=== PATIENT | male | born 1955 | race Caucasian/White ===

== ENCOUNTER 2023-10-30 09:05 | Emergency (ER) | payer MEDICARE, OTHER ==
--- NOTE | 2023-10-30 09:11 | ERPHSYRPT ---
- History of Present Illness Time Seen by Provider: 10/30/23 09:10 Historian: patient Exam Limitations: no limitations Physician History: This is an obese 68-year-old white male patient who presents to the emergency department with intermittent chest pain that began yesterday afternoon. It is in the left upper chest wall. Patient has chronic shortness of breath issues. Patient was concerned because he had similar chest discomfort this morning. He describes this as localized, nonradiating ache. He currently does not have any chest pain. Patient has never been diagnosed with coronary artery disease. He has never seen a smoking pipe repairer. He has a history of hypertension and gout. Patient does smoke cigarettes daily. Ranges from 2 cigarettes a day to a pack o r more if he is drinking alcohol at the same time. Patient has not noticed any hematemesis, hemoptysis or bright red blood per rectum. He has not lost weight. He does not have a cough. Timing/Duration: yesterday Quality: aching Location: other (Left anterior upper chest) Chest Pain Radiation: no radiation Severity of Pain-Max: mild Severity of Pain-Current: none Modifying Factors: Improves With: nothing Associated Symptoms: denies symptoms Prior Chest Pain/Cardiac Workup: no prior chest pain, no prior cardiac workup Nitro Today/Relief: no nitro taken today Aspirin Treatment Today: 81 mg x 4, provided by ED Allergies/Adverse Reactions: No Known Drug Allergies Allergy (Verified 10/30/23 09:13) Home Medications: Allopurinol 100 mg [Zyloprim 100 mg] 100 mg PO DAILY 10/30/23 [History] Lisinopril 20 mg [Zestril 20 MG] 20 mg PO DAILY 10/30/23 [History] Travel Risk - International Travel Have you traveled outside of the country in past 3 weeks: No - Emerging Infectious Disease Are you exhibiting symptoms associated with any current EIDs: No - Review of Systems Constitutional: No Symptoms Eyes: No Symptoms Ears, Nose, & Throat: No Symptoms Respiratory: No Symptoms Cardiac: Chest Pain Abdominal/Gastrointestinal: No Symptoms Genitourinary Symptoms: No Symptoms Musculoskeletal: No Symptoms Skin: No Symptoms Neurological: No Symptoms Psychological: No Symptoms Endocrine: No Symptoms Hematologic/Lymphatic: No Symptoms Immunological/Allergic: No Symptoms All Other Systems: Reviewed and Negative - Past Medical History Pertinent Past Medical History: No - Nursing Vital Signs Nursing Vital Signs: Initial Vital Signs Temperature 97.6 F 10/30/23 09:05 Pulse Rate 80 10/30/23 09:05 Respiratory Rate 20 10/30/23 09:05 Blood Pressure 124/59 10/30/23 09:05 O2 Sat by Pulse Oximetry 98 10/30/23 09:05 Pain Scale Pain Intensity 0 - Physical Exam General Appearance: no apparent distress, alert, obese Eye Exam: PERRL/EOMI, eyes nml inspection Ears, Nose, Throat Exam: normal ENT inspection, moist mucous membranes Neck Exam: normal inspection, non-tender, supple, full range of motion Respiratory Exam: normal breath sounds, lungs clear, airway intact, No chest tenderness, No respiratory distress Cardiovascular Exam: regular rate/rhythm, normal heart sounds, normal peripheral pulses Gastrointestinal/Abdomen Exam: soft, normal bowel sounds, No tenderness Rectal Exam: not done Back Exam: normal inspection, normal range of motion, No CVA tenderness, No vertebral tenderness Extremity Exam: normal inspection, normal range of motion, pelvis stable Neurologic Exam: alert, oriented x 3, cooperative, crowning inspector II-XII nml as tested, normal mood/affect, nml cerebellar function, nml station & gait, sensation nml Skin Exam: normal color, warm, dry Lymphatic Exam: No adenopathy SpO2 Interpretation: normal O2 Delivery: Room Air - Course Nursing assessment & vital signs reviewed: Yes EKG Interpreted by Me: RATE (74), Sinus Rhythm, NORMAL AXIS, NORMAL INTERVALS, NORMAL QRS, NORMAL ST-T, Other (No acute ischemia on today's twelve-lead EKG. No comparison twelve-lead EKG available.) Ordered Tests: Active Orders 24 hr Category Date Time Status Color Control Operator STAT Care 10/30/23 09:25 Active EKG-ER Only STAT Care 10/30/23 09:24 Active IV Insertion STAT Care 10/30/23 09:24 Active Pulse Oximetry (ED) STAT Care 10/30/23 09:24 Active CHEST 1 VIEW (PORTABLE) Stat Exams 10/30/23 09:25 Completed CHEST WITH CONTRAST [CT] Stat Exams 10/30/23 10:17 Completed CBC W DIFF Stat Lab 10/30/23 09:30 Completed CMP Stat Lab 10/30/23 09:30 Completed D-DIMER QUANTITATIVE Stat Lab 10/30/23 09:30 Completed MAGNESIUM Stat Lab 10/30/23 09:30 Completed NT PRO BNPII Stat Lab 10/30/23 09:30 Completed PROTIME WITH INR Stat Lab 10/30/23 09:30 Completed TROPONIN Q4H Lab 10/30/23 09:30 Completed TROPONIN Q4H Lab 10/30/23 13:30 Ordered TROPONIN Q4H Lab 10/30/23 17:30 Ordered Medication Summary Discontinued Medications Generic Name Dose Route Start Last Admin Trade Name Kongq PRN Reason Stop Dose Admin Aspirin 324 mg 10/30/23 09:19 10/30/23 09:21 Aspirin 81 Mg Tab.Chew PO 10/30/23 09:20 324 mg STAT ONE Administration Aspirin Confirm 10/30/23 09:19 Aspirin 81 Mg Tab.Chew Administered 10/30/23 09:20 Dose 324 mg .ROUTE .STK-MED ONE Sodium Chloride 500 mls @ 500 mls/hr 10/30/23 10:18 10/30/23 10:41 Sodium Chloride 0.9% 500 Ml IV 10/30/23 11:17 500 mls/hr .Q1H ONE Administration Sodium Chloride Confirm 10/30/23 10:40 Sodium Chloride 0.9% 500 Ml Administered 10/30/23 10:41 Dose 500 mls @ ud IV .STK-MED ONE Lab/Rad Data: Laboratory Result Diagrams 10/30/23 09:30 10/30/23 09:30 Laboratory Results 10/30/23 10/30/23 10/30/23 Range/Units 09:30 09:30 09:30 WBC (4.0-10.5) x10^3/uL RBC (4.1-5.6) x10^6/uL Hgb (12.5-18.0) g/dL Hct (42-50) % MCV (78-100) fL MCH (26-32) pg MCHC (32-36) g/dL RDW (11.5-14.0) % Plt Count (150-450) x10^3/uL MPV (7.5-11.0) fL Gran % (36.0-66.0) % Immature Gran % (Auto) (0.00-0.4) % Nucleat RBC Rel Count (0.00-0.1) % Eos # (Auto) (0-0.5) x10^3/uL Immature Gran # (Auto) (0.00-0.03) x10^3u/L Absolute Lymphs (auto) (1.0-4.6) x10^3/uL Absolute Monos (auto) (0.0-1.3) x10^3/uL Absolute Nucleated RBC (0.00-0.01) x10^3u/L Lymphocytes % (24.0-44.0) % Monocytes % (0.0-12.0) % Eosinophils % (0.00-5.0) % Basophils % (0.0-0.4) % Absolute Granulocytes (1.4-6.9) x10^3/uL Basophils # (0-0.4) x10^3/uL PT 9.8 (9.4-12.5) SECONDS INR 0.89 (0.8-3.0) D-Dimer 0.77 H* (0.0-0.50) mg/L Sodium 139 (135-145) mmol/L Potassium 4.2 (3.5-5.1) mmol/L Chloride 107 (98-107) mmol/L Carbon Dioxide 28 (22-30) mmol/L Anion Gap 8.6 (5-15) MEQ/L BUN 19 (9-20) mg/dL Creatinine 0.89 (0.66-1.25) mg/dL Estimated GFR 94.5 ML/MIN Glucose 145 H (74-106) mg/dL Calcium 9.2 (8.4-10.2) mg/dL Magnesium 1.9 (1.6-2.3) mg/dL Total Bilirubin 0.30 (0.2-1.3) mg/dL AST 26 (17-59) U/L ALT 26 (0-50) U/L Alkaline Phosphatase 55 (38-126) U/L Troponin I < 0.012 (0.000-0.033) ng/mL NT-Pro-B Natriuret Pep 79.1 (<300) pg/mL Serum Total Protein 6.8 (6.3-8.2) g/dL Albumin 4.0 (3.5-5.0) g/dL 10/30/23 Range/Units 09:30 WBC 5.8 (4.0-10.5) x10^3/uL RBC 4.25 (4.1-5.6) x10^6/uL Hgb 12.9 (12.5-18.0) g/dL Hct 39.3 L (42-50) % MCV 92.5 (78-100) fL MCH 30.4 (26-32) pg MCHC 32.8 (32-36) g/dL RDW 13.2 (11.5-14.0) % Plt Count 158 (150-450) x10^3/uL MPV 10.6 (7.5-11.0) fL Gran % 70.6 H (36.0-66.0) % Immature Gran % (Auto) 0.3 (0.00-0.4) % Nucleat RBC Rel Count 0.0 (0.00-0.1) % Eos # (Auto) 0.12 (0-0.5) x10^3/uL Immature Gran # (Auto) 0.02 (0.00-0.03) x10^3u/L Absolute Lymphs (auto) 1.31 (1.0-4.6) x10^3/uL Absolute Monos (auto) 0.23 (0.0-1.3) x10^3/uL Absolute Nucleated RBC 0.00 (0.00-0.01) x10^3u/L Lymphocytes % 22.8 L (24.0-44.0) % Monocytes % 4.0 (0.0-12.0) % Eosinophils % 2.1 (0.00-5.0) % Basophils % 0.2 (0.0-0.4) % Absolute Granulocytes 4.06 (1.4-6.9) x10^3/uL Basophils # 0.01 (0-0.4) x10^3/uL PT (9.4-12.5) SECONDS INR (0.8-3.0) D-Dimer (0.0-0.50) mg/L Sodium (135-145) mmol/L Potassium (3.5-5.1) mmol/L Chloride (98-107) mmol/L Carbon Dioxide (22-30) mmol/L Anion Gap (5-15) MEQ/L BUN (9-20) mg/dL Creatinine (0.66-1.25) mg/dL Estimated GFR ML/MIN Glucose (74-106) mg/dL Calcium (8.4-10.2) mg/dL Magnesium (1.6-2.3) mg/dL Total Bilirubin (0.2-1.3) mg/dL AST (17-59) U/L ALT (0-50) U/L Alkaline Phosphatase (38-126) U/L Troponin I (0.000-0.033) ng/mL NT-Pro-B Natriuret Pep (<300) pg/mL Serum Total Protein (6.3-8.2) g/dL Albumin (3.5-5.0) g/dL - Progress Progress: improved, re-examined Air Movement: good Progress Note: 10/30/23 09:40 My medical decision making and the assignment of moderate complexity to this patient's medical issue today is based on review of the patient's past medical history, review of the patient's medication list, review of the patient's drug allergy list, history present illness and physical findings on examination. The workup in this patient includes placement of intravenous line, chest x-ray, twelve-lead EKG, BNP, D-dimer, troponin level, CBC, CMP, magnesium level 10/30/23 09:43 Differential diagnosis includes chest wall pain, myocardial infarction, CHF, pulmonary embolus, pneumonia, electrolyte abnormalities 10/30/23 10:16 Chest x-ray was interpreted by the radiologist and I reviewed the impression. The impression states minimal left lung base scarring/atelectasis. Other findings are chronic findings. D-dimer is elevated. We will order a CT scan of the chest with contrast 10/30/23 11:44 I interpreted the remainder of the laboratory data results. There is no evidence of any acute, emergent medical issues based on the laboratory data results. CT scan of the chest with contrast was interpreted by the radiologist and I reviewed the impression. Impression states no pulmonary embolus. There are no acute cardiopulmonary abnormalities. Counseled pt/family regarding: lab results, diagnosis, need for follow-up, rad results Medical Desision Making - Independent Historian Additional History obtained from: Family - Diagnostic Testing Diagnostic test were ordered, analyzed, and reviewed by me: Yes Radiological Interpretation: Reviewed by me, Teleradiologist Report - Risk of complications Low Risk: Low risk of morbidity from additional dx testing or treatment - Departure Departure Disposition: Home Clinical Impression: Nonspecific chest pain Condition: Stable Critical Care Time: No Referrals: KELLY GELLER [Primary Care Provider] - Follow up/PCP as directed Additional Instructions: Take your medications as prescribed. Call your primary care provider today to make arrangements for follow-up appointment to be seen in the next 3 to 5 days for further evaluation management including cardiac stress test and/or referral to smoking pipe repairer if indicated.
[2023-10-30 09:13] VITALS: TEMP 97.6
[2023-10-30] MEDS ORDERED: BABY ASPIRIN 81 MG CHEW ONE (09:19)
[2023-10-30] MEDS: BABY ASPIRIN 81 MG CHEW PO ONE (09:21)
[2023-10-30 09:43] LABS: Absolute Neutrophil Ct (ANC) 4.06 x10^3/uL (1.4-6.9); BASOPHIL % 0.2 % (0.0-0.4); Basophil (Absolute #) 0.01 x10^3/uL (0-0.4); Eosinophil % 2.1 % (0.00-5.0); Eosinophil (Absolute #) 0.12 x10^3/uL (0-0.5); Hematocrit 39.3 % (42-50); Hemoglobin 12.9 g/dL (12.5-18.0); IMMATURE GRAN # 0.02 x10^3u/L (0.00-0.03); IMMATURE GRAN % 0.3 % (0.00-0.4); Lymphocyte (Absolute #) 1.31 x10^3/uL (1.0-4.6); Lymphocytes % 22.8 % (24.0-44.0); Mean Cell Volume 92.5 fL (78-100); Mean Corpuscular Hemoglobin 30.4 pg (26-32); Mean Corpuscular Hgb Concent. 32.8 g/dL (32-36); Mean Platelet Volume 10.6 fL (7.5-11.0); Monocyte (Absolute #) 0.23 x10^3/uL (0.0-1.3); Neutrophil % 70.6 % (36.0-66.0); Platelet Count 158 x10^3/uL (150-450); Red Blood Count 4.25 x10^6/uL (4.1-5.6); Red Cell Distribution Width 13.2 % (11.5-14.0); White Blood Count 5.8 x10^3/uL (4.0-10.5)
[2023-10-30 10:08] LABS: ANION GAP 8.6 MEQ/L (5-15); BILIRUBIN,TOTAL 0.3 mg/dL (0.2-1.3); Calcium 9.2 mg/dL (8.4-10.2); Creatinine 1 0.89 mg/dL (0.66-1.25); EST GLOMERULAR FILTRATION RATE 94.5 ML/MIN; INR 0.89 (0.8-3.0); MAGNESIUM 1.9 mg/dL (1.6-2.3); NT PRO BNPII 79.1 pg/mL (<300); PROTIME 9.8 SECONDS (9.4-12.5); Potassium 4.2 mmol/L (3.5-5.1); Total Protein 6.8 g/dL (6.3-8.2)
[2023-10-30 10:11] LABS: D-DIMER QUANTITATIVE 0.77 mg/L (0.0-0.50)
--- NOTE | 2023-10-30 10:12 | XRAY ---
Indication: Chest pain. Comparison: None Portable chest demonstrates minimal left lung base subsegmental atelectasis/scarring. Remaining heart and lungs unremarkable. Bony thorax intact with osteopenia, mild degenerative changes, and minimal levoscoliosis.
[2023-10-30] MEDS ORDERED: Sodium Chloride 0.9% 500 ML 500 ML IV ONE (10:40)
[2023-10-30] MEDS: Sodium Chloride 0.9% 500 ML 500 ML IV ONE (10:41)
[2023-10-30 11:12] VITALS: BP 146/68
--- NOTE | 2023-10-30 11:34 | XRAY ---
Indication: Chest pain. Elevated d-dimer. Multiple contiguous axial images obtained through the chest using 100 cc Isovue 370 contrast and PE protocol. Comparison: None Good opacification of the pulmonary arteries to include the lobar and segmental branches. Heart not enlarged. Aorta is normal in course and caliber. Tiny mediastinal and left hilar calcified nodes. No pathologic mediastinal/hilar lymphadenopathy. Lungs demonstrates minimal left lung base subsegmental atelectasis/scarring and small left base calcified granuloma. No suspicious pulmonary mass/nodule, infiltrate, or effusion. Bony thorax intact with minimal degenerative changes throughout the spine and minimal levoscoliosis. Limited upper abdomen demonstrates fatty liver, 16 cm splenomegaly, and tiny hepatic/splenic calcified granulomas. Impression: 1. Negative pulmonary embolus. No acute cardiopulmonary abnormalities. 2. Chronic findings including left base atelectasis/scarring, chronic bony findings, fatty liver, splenomegaly, and old granulomatous disease.
[2023-10-30 12:14] VITALS: PULSE 74; RESP 18; O2SAT 98
== END 2023-10-30 12:07 | disposition home or self-care (01) ==
LOC: MERGE 09:05 → ED 09:05
DX: R07.9 Chest pain, unspecified (principal); I10 Essential (primary) hypertension; Z79.899 Other long term (current) drug therapy
CPT/HCPCS: 36000; 36415; 71045; 71260; 80053; 83735; 83880; 84484; 85025; 85379; 85610; 93005; 93041; 94760; 99284; A9270-GY